=== PATIENT | female | born 1955 | race Caucasian/White ===

== ENCOUNTER 2021-02-02 14:03 | Emergency (ER) | payer OTHER ==
[~2021-02-02] VITALS: Ht 160 cm; Wt 37.6 kg
[2021-02-02 15:18] LABS: URINE BILIRUBIN NEGATIVE (Negative); URINE BLOOD NEGATIVE (Negative); URINE CLARITY CLEAR; URINE COLOR YELLOW; URINE GLUCOSE-RANDOM* NEGATIVE (Negative); URINE KETONES NEGATIVE (Negative); URINE LEUKOCYTES-REFLEX NEGATIVE (Negative); URINE NITRITE-REFLEX NEGATIVE (Negative); URINE PROTEIN (DIPSTICK) NEGATIVE (Negative); URINE SPECIFIC GRAVITY <= 1.005 (1.005-1.035); URINE UROBILINOGEN 0.2 E.U./dl (0.2-1.0)
[2021-02-02 15:49] LABS: ALBUMIN 3.5 g/dL (3.4-5.0); ANION GAP 13 mmol/L (7-16); BUN 9 mg/dL (7-18); CALCIUM 9.2 mg/dL (8.5-10.1); CHLORIDE 96 mmol/L (98-107); CO2 29 mmol/L (21-32); CREATININE 0.6 mg/dL (0.6-1.0); DIRECT BILIRUBIN < 0.1 mg/dL (<0.1-0.2); GLUCOSE 105 mg/dL (74-106); LIPASE 90 U/L (73-393); SGOT 19 U/L (15-37); SGPT 16 U/L (30-65); SODIUM 138 mmol/L (136-145); TOTAL BILIRUBIN 0.3 mg/dL (0.2-1.0); TOTAL PROTEIN 7.6 g/dL (6.4-8.2)
[2021-02-02 15:51] LABS: POTASSIUM 2.6 mmol/L (3.5-5.1)
[2021-02-02 16:15] LABS: HEMOGLOBIN 11.6 gm/dL (12.0-15.0); MCH 25.9 pg (26.0-34.0); MCHC 33.1 g/dL (28.0-37.0); MCV 78.4 fL (80.0-100.0); PLATELET COUNT 412 thou/uL (150-400); RBC 4.47 mil/uL (4.20-5.00); RDW 20.3 % (10.5-14.5); WBC 6.6 thou/uL (4.0-11.0)
[2021-02-02 17:06] LABS: ABSOLUTE NEUTROPHILS 4.9 thou/uL (1.4-8.2); ANISOCYTOSIS 2+; HYPOCHROMASIA 1+; MICROCYTES 1+
[2021-02-02 17:58] VITALS: BP 192/102
== END 2021-02-02 17:58 | disposition left against medical advice (07) ==
LOC: ER 14:03
PROVIDERS: Nurse Practitioner
DX: R22.2 Localized swelling, mass and lump, trunk (principal); M06.9 Rheumatoid arthritis, unspecified

== ENCOUNTER 2021-02-13 10:21 | Inpatient (IN) | payer OTHER ==
[~2021-02-13] VITALS: Ht 160 cm; Wt 39.0 kg
[2021-02-13 10:35] VITALS: BP 106/59
--- NOTE | 2021-02-13 11:45 | NUR ---
PT STATES SHE HAD CHEST DISCOMFORT WITH INSPIRATION LAST NIGHT THAT HAS SINCE RESOLVED. PT STATES ONCOLOGIST SENT HER TO ED FOR W/U. PT STATES CHEST DISCOMFORT IS NOT NEW AND IT IS D/T MASS ON RIGHT BREAST. PT HAS A VERY LARGE MASS WITH NECROTIC ULCER, FOUL ODOR NOTED, NO DRAINAGE NOTED AT THIS TIME. PT SISTER AT BEDSIDE STATING THEY WERE SUPPOSED TO BE GETTING INTO WOUND CARE CLINIC TODAY. PT IS ALERT AND ORIENTED X4, AMBULATORY WITH STEADY GAIT, GARCIA, PT SKIN PWD, VSS ON RA, CALL LIGHT ENCOURAGED TO USE
[2021-02-13 12:04] LABS: ABSOLUTE NEUTROPHILS 3.9 thou/uL (1.4-8.2); BASOPHILS 0.8 % (0.0-2.0); EOSINOPHILS 0.1 % (0.0-3.0); HEMATOCRIT 31.7 % (37.0-47.0); HEMOGLOBIN 10.4 gm/dL (12.0-15.0); LYMPHOCYTES 27.7 % (24.0-44.0); MCHC 32.8 g/dL (28.0-37.0); MCV 79.4 fL (80.0-100.0); MONOCYTES 5.4 % (1.0-8.0); PLATELET COUNT 350 thou/uL (150-400); RDW 20.3 % (10.5-14.5); WBC 5.9 thou/uL (4.0-11.0)
[2021-02-13 12:06] LABS: ANION GAP 15 mmol/L (7-16); BUN 18 mg/dL (7-18); CALCIUM 7.6 mg/dL (8.5-10.1); CHLORIDE 102 mmol/L (98-107); CO2 21 mmol/L (21-32); CREATININE 0.8 mg/dL (0.6-1.0); GLUCOSE 111 mg/dL (74-106); POTASSIUM 4.2 mmol/L (3.5-5.1); SODIUM 138 mmol/L (136-145)
[2021-02-13 12:16] LABS: ALBUMIN 3.1 g/dL (3.4-5.0); SGOT 40 U/L (15-37); SGPT 21 U/L (14-59); TOTAL BILIRUBIN 0.3 mg/dL (0.2-1.0); TOTAL PROTEIN 7.2 g/dL (6.4-8.2); TROPONIN-I <0.06 ng/mL (<0.06)
--- NOTE | 2021-02-13 12:21 | EKG ---
[address] [address] ELECTROCARDIOGRAM REPORT Name: MALIKA SAMSON Room #: REG [facility]#: [id number] Admission: 02/13/21 Attend Phys: Discharge: Date of : 53 Report #: [id number] [facility] ED Test Date: 2021-02-13 Test Time: 10:39:05 Pat Name: MALIKA SAMSON Department: Room: Gender: F Human Resources Team Member: ASHLEY : 1955 Requested By: Khanh Bowling Order Number: [id number] MD: Alex Hazel Measurements Intervals [place] Rate: 98 P: 79 DC: 123 QRS: 64 QRSD: 84 T: 41 QT: 345 QTc: 441 Interpretive Statements Sinus rhythm No previous ECG available for comparison Electronically Signed On 02-13-2021 12:21:18 CDT by Alex Hazel [email or web address] <ELECTRONICALLY SIGNED> By: Alex Hazel MD, [facility] 02/13/21 1221 1039 1039 Alex Hazel MD, FACC /EPI
[2021-02-13 13:15] LABS: ANISOCYTOSIS 1+; PLATELET ESTIMATE NORMAL; POLYCHROMASIA 1+
--- NOTE | 2021-02-13 13:33 | NUR ---
HOSPITALIST AT BEDSIDE WITH PT AT THIS TIME
--- NOTE | 2021-02-13 13:57 | NUR ---
PT AMBULATED TO RESTROOM, GAIT STEADY IN NATURE
[2021-02-13 14:09] VITALS: BP 110/67
--- NOTE | 2021-02-13 14:12 | NUR ---
HANDOFF TOOL SENT AT THIS TIME
--- NOTE | 2021-02-13 14:28 | NUR ---
REPORT GIVEN VADIM QUINONES AT THIS TIME. DENIES FURTHER QUESTIONS. PT STABLE AND READY FOR TRANSFER TO FLOOR
[2021-02-13 15:00] VITALS: BP 121/69
[2021-02-13 16:00] VITALS: BP 110/67
[2021-02-13 16:24] LABS: FOLIC ACID 31.5 ng/mL (8.6-58.9)
--- NOTE | 2021-02-13 16:50 | NUR ---
Patient arrived to unit at approx 1530. Patient transferred to bed with stand by assist & tolerated well. Patient oriented to room & given admission packet. Patient has a wound secondary to cancer. Zahra Herzog and Topher consulted. Pictures taken and posted on chart. Patient is sr/st on Telemetry. Patient denies pain but did voice having pain last night. Care plan activated, IVF infusing on L FA w no issues. Patient stated she is wanting to leave, Ирина at bedside and aware. Endorsed to charge nurse.
[2021-02-13 20:54] VITALS: BP 109/63
--- NOTE | 2021-02-14 05:17 | NUR ---
PATIENT AOX1 CONFUSED AND FORGETFUL. PATIENT WAS EASY TO REDIRECT AT TIMES. TREATMENT DONE ON RIGHT BREAST, MAXIMUM DRAINAGE NOTED AND S/S OF INFECTION. PATIENT WAS GETTING AGITATED AND WANTED TO LEAVE AT AROUND 0000. PATIENT REMOVE IV AND TELE BOX AND WANTED TO LEAVE. AT AROUND 0100 PATIENT WAS FULLY DRESSED ON STREET CLOTHS. AND TRYING TO LEAVE, WHEN THIS NURSE TRIED TO GET THE PATIENT BACK I THE ROOM.PATIENT STARTED KICKING AND YELLING. SECURITY CALLED AND ORDER OF HALDOL GIVEN. PATIENT REFUSED TO GET IN THE ROOM AND HAVE THE IM, CALLED BEVEL POLISHER AGAIN FOR A HOLD ORDER TO GIVE IM INJECTION. LEFT SECURITY WITH PATIENT TO GET THE ORDER. SECURITY ESCORTED PATIENT TO THE ER WHILE THIS NURSE WAS GETTING AN ORDER TO PHYSICALLY HOLD THE PATIENT TO GIVE IM HALDOL. SECURITY DID NOT LET THIS NURSE OR ANYONE IN THE UNIT KNOW THAT THEY WERE TAKING THE PATIENT OFF THE UNIT.
--- NOTE | 2021-02-15 09:45 | HC ---
[facility] [place] [address] CONSULTATION Name: MALIKA SAMSON Room #: 459-P [facility] IN M.R.#: [id number] Admission: 02/13/21 Attend Phys: Yoselin Gifford MD Discharge: 02/14/21 Date of : 53 Report #: [id number] THIS REPORT FOR: cc: Haydee Martinez Beth RNP Althoff, Jeffrey R. MD ~ DOC #: [id number] Gold Kline MD DATE OF SERVICE: 02/13/2021 CHIEF COMPLAINT: Chest wall erosion. HISTORY OF PRESENT ILLNESS: This is a 65-year-old female patient who was brought to the Emergency Department by her sisters with chest wall pain. She has is a very poor historian, but apparently developed some sort of lesion or ulceration to her chest wall about 2 years ago, but ignored it as it was not painful. It has become increasingly painful and larger and she is brought here for further evaluation and treatment. She apparently has had a CT scan, which demonstrates a likely malignant in origin with some erosion of her ribs underlying this area. She is admitted for further evaluation and care. The patient is a little bit evasive or simply it is difficult to get a solid history from her. However, this CT scan demonstrated a large heterogeneous soft tissue mass involving the entire right breast and extending across the midline and into the right breast axillary tail. The mass involves the anterior chest wall and anterior pleura and there is erosion of adjacent ribs, but there was no evidence of metastatic disease. The patient notes some pain and some odor present. PAST MEDICAL HISTORY: Positive for history of rheumatoid arthritis. SOCIAL HISTORY: Positive for current smoking. No alcohol use. FAMILY HISTORY: Noncontributory. REVIEW OF SYSTEMS: Difficult to obtain from the patient and really are all pertinent systems are contained in the history of present illness or otherwise not obtainable. PHYSICAL EXAMINATION: VITAL SIGNS: Temperature 36.1, pulse 102, respiration of 18, blood pressure 110/67. GENERAL: This is a chronically ill-appearing female patient, who appears to be in no obvious distress. HEENT: Normocephalic. Nose and throat clear. NECK: Supple. LUNGS: Clear. HEART: Regular rhythm. [facility] [address] [place] [address] CONSULTATION Name: MALIKA SAMSON Room #: 459-P [facility] IN M.R.#: [id number] Admission: 02/13/21 Attend Phys: Yoselin Gifford MD Discharge: 02/14/21 Date of : 53 Report #: [id number] ABDOMEN: Soft, nontender. MUSCULOSKELETAL: The right chest wall demonstrates necrotic ulceration involving the anterior chest wall on the right side, almost circumferential to her breast with distortion of breast tissue and induration of the breast tissue. There is some odor present. The ulceration has no granulation tissue and has a disorganized appearance. EXTREMITIES: Without clubbing or cyanosis. NEUROLOGIC: The patient is alert, does appear to be moving all 4 extremities spontaneously. LABORATORY DATA: Sodium 138, potassium 4.2, chloride 102, CO2 of 21, BUN 18, creatinine 0.8, total bilirubin 0.3, total protein is 7.2, albumin is 3.1. White blood cell count 5.9 with a hemoglobin of 10.4. CT scan findings detailed above in the history of present illness with large breast mass with erosion into the chest wall. CLINICAL IMPRESSION: 1. Right chest wall ulceration, likely due to malignant process, primarily involving the breast with extension into chest wall and pleura. 2. History of rheumatoid arthritis. RECOMMENDATIONS: At this point in time, we will recommend topical Silvadene, morphine compound with Xeroform gauze and ABD to be changed twice daily, which will help, I hope, with some of her discomfort as well as facilitate dressing changes. Clearly, this is going to require biopsy and/or surgical or oncology intervention and I believe she is to see oncology while here in the hospital. I do appreciate being asked to see her in consultation. MD MARQUIS Khoury/ARNEL <ELECTRONICALLY SIGNED> By: Gold Kline MD 02/15/21 0945 1708 [id number] Gold Kline MD /nt
== END 2021-02-14 02:00 | disposition left against medical advice (07) | DRG 389 ==
LOC: ER 10:21 → EROBS 13:47 → 4W 13:47
PROVIDERS: Emergency Medicine; Nurse Practitioner; ADMIT Hospitalist; ATTEND Hospitalist
DX: K56.600 Partial intestinal obstruction, unspecified as to cause (principal); Z68.1 Body mass index [BMI] 19.9 or less, adult; M06.9 Rheumatoid arthritis, unspecified; R22.2 Localized swelling, mass and lump, trunk; F17.210 Nicotine dependence, cigarettes, uncomplicated; R62.7 Adult failure to thrive; N63.0 Unspecified lump in unspecified breast; L98.499 Non-pressure chronic ulcer of skin of other sites with unspecified severity; Z53.29 Procedure and treatment not carried out because of patient's decision for other reasons; Z71.6 Tobacco abuse counseling
CPT/HCPCS: 10045

== ENCOUNTER 2021-02-14 04:17 | Inpatient (IN) | payer OTHER ==
[2021-02-14] VITALS (7 sets, daily range): BP systolic 92–124; BP diastolic 55–77
[~2021-02-14] VITALS: Ht 160 cm; Wt 39.0 kg
--- NOTE | 2021-02-14 06:43 | NUR ---
PATIENT ARRIVED AT AROUND 0600. PATIENT DENIED PAIN OR DISCOMFORT. FALL PRECAUTION IN PLACE. PATIENT WAS TRYING TO ELOP THIS SHIFT. PATIENT IN BED ASLEEP AT THIS TIME BREATHING REGULAR AND UNLABOURED.
--- NOTE | 2021-02-14 11:05 | NUR ---
ASSUMED PT CARE THIS AM. ADMISSION COMPLETED CHARTED. PATIENT IS A&OX1. FALL PRECAUTIONS ARE IN PLACE. NEW IV STARTED TO LEFT WRIST. PATIENT ON TELEMETRY. PATIENT IS ON ROOM AIR. FALL PRECAUTIONS IN PLACE, CALL LIGHT WITHIN REACH.
--- NOTE | 2021-02-14 14:39 | NUR ---
PT ADMITTED RELATED TO CHEST MASS AND BOWEL OBSTRUCTION. PT HAD BEEN ADMITTED YESTERDAY AND LEFT UNIT AMA AND POLICE RECOVERED HER IN THE WOOD. PT'S SISTERS WHO LIVE OUT OF STATE ARE TAKING SHIFTS BEING HERE WITH PT LUIS MANUEL NIEVES LIVES IN [place] AND SISTER THIERNO MOTT LIVES IN [place]. NEITHER ARE DPOA THERE ISN'T A DOCUMENT. CM MET WITH PT AND LUIS MANUEL AT BEDSIDE AND PT WAS ABLE TO PROVIDE SOME ASSESSMENT INFO. SHE INDICATED SHE LIVES IN A HOUSE ALONE WITH 2 STEPS TO ENTER AND NONE SHE USES INSIDE. 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 PT LISTED AT PATIENT PAY.. SISTER LUIS MANUEL HAS A DOCUMENT FROM [employer] AND THEY HAVE A PHONE APPOINTMENT ON MARCH 09 RELATED TO HER SOCIAL SECURITY. [employer] HAS ALREADY BEEN IN CONTACT WITH LUIS MANUEL TO ASSIST WITH MEDICAID AND BENEFITS. PT TO HAVE BIOPSY AND BONE SCAN TODAY. PSYC AND NEURO PSYC CONSULTED. CM FOLLOWING REGARDING DC PLANNING.
--- NOTE | 2021-02-15 04:22 | NUR ---
PATIENT AOX1 CONFUSED AND FORGOTTEN. PATIENT HAS A DRESSING ON RIGHT BREAST C/D/I, PATIENT WOUND HAS A STRONG ODOR. PATIENT AMBULATES WITH STEADY GAITS. PATIENT IS [place]. PATIENT WAS GETTING AGITATED AND ANXIOUS THIS SHIFT, PRN HALDOL GIVEN PER ORDER. FALL PRECAUTION IN PLACE. PATIENT IN BED ASLEEP AT THIS TIME BREATHING REGULAR AND UNLABOURED.
[2021-02-15 08:34] VITALS: BP 109/63
[2021-02-15 08:43] VITALS: BP 109/68
--- NOTE | 2021-02-15 12:11 | NUR ---
Received awake on bed. Due medications given as prescribed. On soft fiber restricted diet- tolerating well; no nausea, no vomiting and no abdominal pain noted. On room air. Vital signs stable. With NS at 80cc/hr, infusing well at L wrist. On telemetry; no complains and signs of chest pain, crushing sensation and heaviness. Assisted in ADLs. May be impulsive at times; falls bundle in place- pt near the nurse's station for close monitoring- elopment risk. No complains of pain made during assessment. Continent of bowel and bladder, able to go to the toilet with standby assist and gait belt.
--- NOTE | 2021-02-15 14:17 | NUR ---
PT'S OTHER SISTER THIERNO FROM [place] IS AT BEDSIDE THIS DAY. SHE IS A RETIRED NURSE. PT WAS GIVEN MEDS FOR HER BONE SCAN AND DTR LAQUITA WASN'T ABLE TO ASSESS COMPETANCY DURING THIS VISIT. HE IS TO FOLLOW UP TOMORROW TO SEE IF PT CAN/WILL ELECT A DPOA. CM FOLLOWING REGARDING DC PLANNING.
[2021-02-15 16:46] VITALS: BP 134/78
[2021-02-15 20:33] VITALS: BP 136/76
[2021-02-16 07:48] LABS: CALCIUM 8.7 mg/dL (8.5-10.1); CREATININE 0.8 mg/dL (0.6-1.0); MAGNESIUM 1.7 mg/dL (1.8-2.4)
[2021-02-16 07:53] LABS: HEMATOCRIT 27.9 % (37.0-47.0); HEMOGLOBIN 9.1 gm/dL (12.0-15.0); MCH 26.5 pg (26.0-34.0); MCHC 32.8 g/dL (28.0-37.0); MCV 80.7 fL (80.0-100.0); RBC 3.46 mil/uL (4.20-5.00); RDW 21.7 % (10.5-14.5)
[2021-02-16 08:12] VITALS: BP 167/97
--- NOTE | 2021-02-16 08:52 | HC ---
[facility] [place] [address] CONSULTATION Name: MALIKA SAMSON Room #: 462-P ADM IN M.R.#: [id number] Admission: 02/14/21 Attend Phys: Kapil Reyes MD Discharge: Date of : 53 Report #: [id number] THIS REPORT FOR: cc: Haydee Martinez Beth RNP Deutch, Neal B. PhD ~ DOC #: [id number] Spike Baumann, PhD DATE OF SERVICE: 02/15/2021 NEUROBEHAVIORAL STATUS EXAM ATTENDING PHYSICIAN: Dr. Kapil Reyes. JEWELRY REPAIRER: Spike Baumann, PhD CLINICAL PRESENTATION: The patient is a 65-year-old female initially admitted to [facility] accompanied by her sister from home with complaints of chest pain. The patient was evaluated for right chest wall ulcerated wound and received a CT scan of the head. She then left AMA. Her medical problem list included a bowel obstruction and chest mass. She was evaluated from Hematology and Oncology and her assessment was a right breast chest mass. The patient has a 2-year history of breast mass prior to this most recent assessment. A necrotic right breast mass was diagnosed with brain scan ordered. A complete description of her medical condition and history as well as medications can be found in her medical record. Neuropsychological consultation was requested to provide assistance in the assessment of cognitive and emotional status and provide recommendations regarding mental capacity. The patient reports that she was living independently in her own home prior to this most recent medical event. She states that she was independent with basic and instrumental activities of daily living. She is with no children. The patient has 3 sisters. She is a college graduate from the [employer]. 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 TECHNIQUES UTILIZED: Clinical interview, review of medical records, staff consultation and behavioral observation, mini mental status exam 2 standard version, verbal fluency assessment (letter and category and clock drawing). EXAMINATION FINDINGS: The patient was alert and cooperative with the assessment. However, she appears to lack insight into the severity of her cognitive deficits. She is likely an unreliable historian. She does not report feelings of anxiety or depression and states that sleep and appetite are [facility] [address] [place] [address] CONSULTATION Name: MALIKA SAMSON Room #: 462-P ADM IN M.R.#: [id number] Admission: 02/14/21 Attend Phys: Kapil Reyes MD Discharge: Date of : 53 Report #: [id number] within normal limits. Frustration about having been hospitalized is reported. Intermittent difficulty with memory is reported. Her performance on the MMSE 2 brief version was extremely low with a raw score of 6/16. She was 3/3 for initial registration, 2/5 for orientation to time, 1/[address], and 0/3 for immediate recall of 3 items after a brief time delay and distraction. Performance on the MMSE 2 standard version was extremely low with a raw score of 15/30. She was 1/5 for serial sevens, 2/2 for naming, 1/1 for repetition, 3/3 for auditory comprehension. She could read and follow a single command and write a sentence. The patient was unable to copy a simple geometric design. The patient was unable to complete clock drawing. She had difficulty with placing numbers within the clock as well as setting the hands at a designated time. Performance on verbal fluency assessment was extremely low. Letter fluency was a raw score of 9, T score of 19 and percentile rank of less than 1. Category fluency was a raw score of 12, T score of 19, percentile rank of less than 1. Overall, total fluency was extremely low with a raw score of 21, T score of 19 and percentile rank of less than 1. The patient is presenting with severe deficits in cognition. However, she does have intermittent periods in which she is lucid and better oriented. She is able to recognize her sisters as her primary source of support. This type of presentation suggests a severe neurocognitive disorder. Delirium may also be a part of her current presentation. The extent of the neurocognitive deficit is to be determined. DIAGNOSTIC IMPRESSION: Delirium, mixed level of activity, acute. Neurocognitive disorder extent to be determined. RECOMMENDATIONS: The patient is likely to maintain mental capacity for the selection of one of her sisters as her durable power of sports attorney. While she has intermittent periods of disorientation and confusion, her consistency in identifying her sisters as well as their availability to provide assistance in the management of medical decision making process appears satisfactory. The patient will need assistance in the management of her medical condition. She is likely to lack mental capacity in regard to medical decision making. However, as indicated, the selection of a durable power of sports attorney as restricted to her sister's appears to be appropriate. Thank you very much for allowing me to provide the consultation on this patient. [facility] [address] [place] [address] CONSULTATION Name: MALIKA SAMSON Room #: 297-P ADM IN M.R.#: [id number] Admission: 02/14/21 Attend Phys: Kapil Reyes MD Discharge: Date of : 53 Report #: [id number] Spike Baumann, PhD NBD/ALL <ELECTRONICALLY SIGNED> By: Spike Baumann, PhD 02/16/21 0852 1538 0104 Spike Baumann, PhD /nt
[2021-02-16 10:23] VITALS: BP 141/76
[2021-02-16 15:52] VITALS: BP 155/95
--- NOTE | 2021-02-16 16:06 | NUR ---
CM MET WITH PT AND HER SISTER THIERNO AT BEDSIDE THIS DAY. PT INDICATED SHE WAS AGREEABLE WITH DOING A DPOA DOCUMENT AND THAT SHE WOULD LIKE TO DESIGNATE HER SISTER LUIS MANUEL. STUMPER FELLER NOTERIZED DOCUMENT CM AND SISTER THIERNO WITNESSED. DOCUMENT PLACED ON CHART. PT INIDCATED NO DEFICITS WITH MOBILITY AT THIS TIME. OT WORKING ON GROOMING TASKS. PT WITH NO INSURANCE AT THIS MOMENT. PT HAD BEEN AT HOME WITH LIMITED SUPPORT OF HER OUT OF TOWN SISTERS [employer]. CM FOLLOWING REGARDING DC PLANNING. PT HAD BIOPSY THIS DAY AND IS GETTING WC AND ABX.
[2021-02-16 20:00] VITALS: BP 141/83
--- NOTE | 2021-02-16 20:00 | NUR ---
PT IS A&0*4, FORGETFULL AND IMPULSSIVE. STABLE IN VS AND ROOM AIR. PT WORKED WITH PT AND OT, AND AMBULANCE WITH FAMILY ON HALLWAY IN THE UNIT WITHIN OT APPROVED. PT'S RROM KEPT OPEN FOR SECURITY CONCERNS DURING THE WHOLE SHIFT. RIGHT BREAST UNDER DRESSING CHANGED AND CULTURED IN THE AFTERNOON AROUND 17:00. PAIN MEDICATION GIVEN AFTER DRESSING CHANGED. HAS BEEN APPLIED THREE TIMES LOTION ON PATIENT'S BACK AND BILATERAL LEGS FOR COMFORT. PT HAS BEEN WALKED FROM BED TO CHAIR AND BATHROOM SAFELY WITH FAMILY OR STAFF MONITOR AND ASSISTANCE. BED ALARM AND CHAIR ALARM APPLIED DUE TO UNSTABLE GAIT. IV ABX HAS BEEN GIVEN PER ORDERS. GIVE REPORT TO INSURANCE ACCOUNT REPRESENTATIVE NURSE LINCOLN FOR KEEP MONITOR PATIENT'S STAFETY, WOUND AND VS.
--- NOTE | 2021-02-17 06:23 | NUR ---
Pt. up several times during the night to use the bathroom. She ambulates with standby assistance. She does c/o pain to the right breast, but refused po tylenol when offered. Dressing done to right breast as ordered. Bed alarm is on.
[2021-02-17 07:36] VITALS: BP 146/83
--- NOTE | 2021-02-17 08:35 | HC ---
[facility] [place] [address] CONSULTATION Name: MALIKA SAMSON Room #: 462-P ADM IN M.R.#: [id number] Admission: 02/14/21 Attend Phys: Kapil Reyes MD Discharge: Date of : 53 Report #: [id number] THIS REPORT FOR: cc: Haydee Martinez Beth RNP Kerstein, Andrew H. DO ~ DOC #: [id number] BECKI Grover DO DATE OF SERVICE: 02/16/2021 INPATIENT PSYCHIATRIC CONSULTATION DATE OF CONSULTATION: 02/16/2021 PRIMARY ATTENDING: Kapil Reyes MD. DB2 DEVELOPER: Dr. Turner. CONSULTING PSYCHIATRIST: Becki Grover DO REASON FOR CONSULTATION: Capacity and ability to establish execute a healthcare durable power of trademark attorney, ability to make higher level of medical decisions and also the question of psychotropic medication intervention. Additionally, the patient was admitted for a right fungating mass from her breast and right chest wall. SOURCES OF INFORMATION: Interview with the patient, collateral from her sister, Daisy, who was present, discussion with Dr. Reyes. HISTORY OF PRESENT ILLNESS: This is a 65-year-old female, single, who was admitted on 02/14/2021. The patient has had actually ER visit before that where she was sent home and apparently did not follow up, from available sources, she has had a long period of ignorance denial of her mass issue on her right breast and chest. I had attempted to see the patient yesterday and she was heavily sedated from lorazepam. Today, she was alert, ambulating and cheerful. We administered the [facility] Mental Status examination, the patient scored a 17/30. Deficits were noted. She was 0/3 for working memory questions with spending 100 dollars and a tricycle, 13/15 on animal naming in 1 minute 13 recall, much to my surprise, she was actually able to recall up to four digits backwards. She was only 2/4 on clock drawing. She was able to identify figures and only got 3/4 questions right on the cued memory. 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 Other notable information from the last few days is as follows and looks like Dr. Baumann saw her as well and diagnosed her with a delirium, mixed level of activity and looks like he give the same conclusion that she could appoint a DPOA, but not make higher level medical decisions. [address] [address] CONSULTATION Name: MALIKA SAMSON Room #: 462-P ADM IN M.R.#: [id number] Admission: 02/14/21 Attend Phys: Kapil Reyes MD Discharge: Date of : 53 Report #: [id number] In any event, other information from the chart. ALLERGIES: No known allergies. Looks like her first admission was on 02/13/2021. Also, history of rheumatoid arthritis. She is a current smoker. No recreational drug use or alcohol use to unspecified degree. REVIEW OF SYSTEMS: Deferred for this eval as focusing on the capacity issue. PHYSICAL EXAMINATION: VITAL SIGNS: Temperature 36.4, pulse 86, respirations 16, BP 155/95, O2 sat 99%. MUSCULOSKELETAL: Normal gait and station. MENTAL STATUS EXAMINATION: This is a well-developed, ill-appearing female, appearing stated age. Attention intact. Concentration limited as witnessed by errors on clock drawing. Speech normal in rate, volume and tone thought process linear and goal directed. Thought content, relative poverty of thought. With respect to her mood, she was euthymic, congruent. lebelle indifference given the seriousness of her general medical issues. Denied SI, HI, or auditory, visual, or tactile hallucinations. Insight limited. Judgment impaired. Fund of knowledge, no greater than average. FORMULATION: A 65-year-old female admitted for evaluation of a fungating right breast and chest wall mass. DIAGNOSES: Unspecified psychosis/ delirium, largely resolved major neurocognitive disorder, suspected given longstanding self-neglect and SLUMS result RECOMMENDATIONS AND FINDINGS: On the question of ability to appoint a healthcare DPOA, I agree with my colleague, Dr. Baumann that she does have the ability to do this. I relayed this in a timely fashion to Dr. Reyes and advised him to summon the public policy analyst today. On the question of making high level decisions such as surgery, cancer treatment, etc., I do not think the patient with cognitive deficits as these would be able to manage the information in appropriate way. In my opinion, the patient should not be allowed to leave the hospital against medical advice given her degree of cognitive impairment, it would be advisable for her to be placed in a nursing facility. I do not know the prognosis in terms of the cancer treatment, given the uncertainty of replacement and compliance issues and that she was not overtly psychotic today and had more subtle signs of psychosis, I do not think it is worth introducing [facility] [address] [place] [address] CONSULTATION Name: MALIKA SAMSON Room #: 462-P ADM IN M.R.#: [id number] Admission: 02/14/21 Attend Phys: Kapil Reyes MD Discharge: Date of : 53 Report #: [id number] an antipsychotic at this time. Also medications reviewed at this time anastrozole 1 mg oral daily, metronidazole 500 mg p.o. b.i.d. She is on Zosyn 3.375 grams q. 8 hours IV piggyback, vancomycin 750 mg q. 12 hours IV piggyback, famotidine, Lovenox, morphine p.r.n., haloperidol 1 mg q. 6 p.r.n. At this point, Psychiatry will sign off. Please call or page of further assistance needed. Time spent on this case is about 40 minutes. DO PADMINI Hernandez/ISRA/BRODERICK <ELECTRONICALLY SIGNED> By: Becki Grover DO 02/17/21 0835 1734 0020 Becki Grover DO /nt
--- NOTE | 2021-02-17 12:07 | PATH ---
[facility] [place] [address] PATHOLOGY RPT PROCEDURE Name: MALIKA SAMSON Room #: 462-P ADM IN M.R.#: [id number] Admission: 02/14/21 Date of : 53 Discharge: Report #: [id number] Path Case #: [id number] [facility] Accession Number: [id number] . 01 Material submitted: . breast - BREAST BIOPSY. Modifiers: right . 01 Clinical history: . BREAST BIOPSY . 02 Diagnosis: Breast, needle core biopsy: - No definite breast parenchyma identified. - Specimen comprised of fibrosis along with myxoid stroma. - No malignant epithelial cells present, see comment. 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 02 Comment: A properly controlled AE1/AE3 immunohistochemical stain is performed and shows no occult malignant epithelial cells within the biopsy tissue. . Findings are communicated to Dr. Herzog at approximately 3:45 p.m. on 02/15/2021. . (IUV:chain forming machine operator; 02/15/2021) . 02 Electronically signed: . Deepthi Leon MD, Pathologist NPI- [id number] . 01 Gross description: . Received in formalin labeled "Malika Samson and right breast". Received are 2 white-yellow fibroadipose breast cores ranging from 1.2-1.6 cm in length and 0.1-0.2 cm in diameter. The specimen is entirely submitted in cassette A1. The specimen was collected 02/18/2021. The time collected and placed in the form is not specified on the requisition or container. The specimen will be removed from formalin 02/18/2021 at 2340 hours. The specimen will be in formalin more than 6 hours and less than 72 hours.(BLJ; 02/14/2021) [facility] 02/14/2021 1802 Local . 02 Pathologist provided ICD-10: N60.31 . 02 CPT . [id number], [id number] [place] [address] PATHOLOGY RPT PROCEDURE Name: MALIKA SAMSON Room #: 462-P ADM IN M.R.#: [id number] Admission: 02/14/21 Date of : 53 Discharge: Report #: [id number] Path Case #: [id number] Specimen Comment: A courtesy copy of this report has been sent to [phone] Specimen Comment: [id number] Specimen Comment: Report sent to / DR ORO Specimen Comment: A duplicate report has been generated due to demographic updates. Performed at: [address], [place] [id number] MD Evgeny Mcmahan MD Phone: [phone] Performed at: [address] [id number] MD Deepthi Leon MD Phone: [phone]
--- NOTE | 2021-02-17 15:25 | NUR ---
ASSUMED PT CARE THIS AM. PT A&OX3, ABLE TO MAKE NEEDS KNOWN. PATIENT TOLERATED MEDS WELL THIS AM. IV PATENT, FLUIDS INFUSING. PATIENT STANDBY ASSIST TO BATHROOM, REMAINS CONTINENT. RASH NOTED ON PATIENTS BACK, FAMILY NOTED THAT THIS RASH HAS BEEN ON PATIENT PRIOR TO ADMISSION. PATIENT REPORTS NO PAIN. PATIENT REMAINS ON TELE. PATIENT ON ROOM AIR. FALL PRECAUTIONS ARE IN PLACE, CALL LIGHT WITHIN REACH. WOUND CARE COMPLETED TO RIGHT BREAST AND BILATERAL LOWER EXTREMETIES. PATIENT TOLERATED WELL.
--- NOTE | 2021-02-17 15:54 | NUR ---
SW reviewed chart and spoke with nursing and attending physician. Pt is on IV abx. Awaiting biopsy results at this time. No weekend discharge planned. SW discussed case with [facility] liaison, who states they may be able to provide moriah RN visits if needed for wound care. [facility] is following to assist as needed with discharge planning.
[2021-02-17 16:20] VITALS: BP 146/87
[2021-02-17 19:51] VITALS: BP 159/98
--- NOTE | 2021-02-18 04:20 | NUR ---
erasto aox2/3 makes needs known. patient right breast dressing is c/d/i. fall precaution in place. patient in bed asleep at this time breathing regular and unlaboured.
[2021-02-18 04:57] LABS: ABSOLUTE NEUTROPHILS 2.1 thou/uL (1.4-8.2); EOSINOPHILS 0.5 % (0.0-3.0); HEMATOCRIT 30.8 % (37.0-47.0); HEMOGLOBIN 9.8 gm/dL (12.0-15.0); LYMPHOCYTES 35.4 % (24.0-44.0); MCH 25.8 pg (26.0-34.0); MCHC 31.7 g/dL (28.0-37.0); MCV 81.4 fL (80.0-100.0); MONOCYTES 8.9 % (1.0-8.0); PLATELET COUNT 301 thou/uL (150-400); POLYS 54.2 % (36.0-66.0); RBC 3.78 mil/uL (4.20-5.00); RDW 21.4 % (10.5-14.5); WBC 3.9 thou/uL (4.0-11.0)
[2021-02-18 05:33] LABS: ALBUMIN 2.8 g/dL (3.4-5.0); CALCIUM 8.9 mg/dL (8.5-10.1); CREATININE 0.7 mg/dL (0.6-1.0); PHOSPHORUS 3.4 mg/dL (2.5-4.9); POTASSIUM 4.6 mmol/L (3.5-5.1); TOTAL BILIRUBIN 0.3 mg/dL (0.2-1.0); TOTAL PROTEIN 7.1 g/dL (6.4-8.2)
[2021-02-18 07:47] VITALS: BP 143/89
[2021-02-18 16:15] VITALS: BP 154/92
--- NOTE | 2021-02-18 18:30 | NUR ---
PT ASSESSED AT START OF SHIFT. PT CALM AND PLEASANT ENTIRE SHIFT. ORIENTED WELL. PT VISITED MOST OF DAY W/ HER SISTER WHO FLEW IN FROM [facility]. ATE AND DRANK WELL. AMBULATED THE HALLS W/ JURY CONSULTANT W/ STANDBY ONLY.
[2021-02-18 20:00] VITALS: BP 135/82
--- NOTE | 2021-02-19 03:19 | NUR ---
ASSESSMENT DOCUMENTED.PT BEEN RESTING IN NO ACUTE DISTRESS.VSS.AFEBRILE.SR ON MONITOR.ON RA W/O RESP DISTRESS.SBA W/ TOILETING.REMAINS ON INTRAVENOUS ANTIBIOTICS THERAPY,TOLERATING.RIGHT BREAST DRESSING COMPLETED AND INTACT,PT TOLERATED TX.DENIES PAIN OR ANY CONCERNS AT THIS TIME.POC IS TO CONTINUE W/CURRENT TX WHILE WAITING FOR BIOPSY RESULTS.
[2021-02-19 05:00] VITALS: BP 144/84
[2021-02-19 08:00] VITALS: BP 148/102
[2021-02-19 12:30] LABS: ABSOLUTE NEUTROPHILS 3.3 thou/uL (1.4-8.2); BASOPHILS 1.3 % (0.0-2.0); EOSINOPHILS 0.2 % (0.0-3.0); HEMATOCRIT 28.8 % (37.0-47.0); HEMOGLOBIN 9.5 gm/dL (12.0-15.0); LYMPHOCYTES 18.7 % (24.0-44.0); MCH 26.8 pg (26.0-34.0); MCHC 33.1 g/dL (28.0-37.0); MONOCYTES 8.4 % (1.0-8.0); PLATELET COUNT 289 thou/uL (150-400); POLYS 71.4 % (36.0-66.0); RBC 3.55 mil/uL (4.20-5.00); WBC 4.6 thou/uL (4.0-11.0)
--- NOTE | 2021-02-19 15:37 | NUR ---
PATIENT WAS A&O*4 THIS MORNING AND WAS RUSHED TO GET DRESSED. PATIENT IS CONFUSED AND FORGETFULL. PT THOUGHT SHE WAS GOING TO BE DISCHARGE TODAY. TALKED TO THE DR. BAILON AND NOTICED PT'S CONCERNS. HAD CONVERSATION WITH PT'S SISTER AND CHANGED TO "NO CODE" FROM "FULL CODE". PT IS REORITENTED AND A&O*4 LATER AFTER SISTER'S CAME TO VISIT. DRESS CHANGED PER ORDER AND PAIN MEDICINE PROVIDED AFTER. IV ROTATED DUE TO PATIENT REQUEST TO RIGHT FOR ARM. KEEP SUPERVISE AND STANDBY PATIENT WHEN SHE AMBULATE TO THE RESTROOM IN PATIENT'S ROOM. WILL KEEP MONITOR PATIENT'S SAFETY, VS AND DRESSING STATUS UNTIL SHIFT CHANGE.
[2021-02-19 16:51] VITALS: BP 146/80
[2021-02-19 19:28] VITALS: BP 149/73
--- NOTE | 2021-02-20 05:13 | NUR ---
Pt. rested quietly at intervals during the night when checked on during the night. She offers no c/o pain. Pt. c/o being hungry and box lunch given. Treatment done to right breast as ordered. Bed alarm is on. Cooperative with cares.
[2021-02-20 07:33] VITALS: BP 145/72
--- NOTE | 2021-02-20 08:00 | HC ---
[facility] [place] [address] [address] [place] [address] CONSULTATION Name: MALIKA SAMSON Room #: 462-P ADM IN M.R.#: [id number] Admission: 02/14/21 Attend Phys: Kapil Reyes MD Discharge: Date of : 53 Report #: [id number] THIS REPORT FOR: cc: Haydee Martinez Beth RNP Althoff, Jeffrey R. MD ~ DOC #: [id number] Gold Kline MD DATE OF SERVICE: 02/15/2021 CHIEF COMPLAINT: Ulceration to the right chest wall. HISTORY OF PRESENT ILLNESS: This is a 65-year-old female patient who I just saw here in the hospital several days ago. She subsequently left against medical advice, was found apparently roaming in the [place] and is return here, she is accompanied by a sister. She is a very poor historian, but developed some sort of a lesion or ulceration to her chest wall 2 years ago, but ignored it as it was not painful. It became increasingly painful and larger and she was brought here by family members. She has had a CAT scan, which demonstrates a likely malignant tumor involving the breast and chest wall with erosion into her ribs and underlying area and into the pleura. She is readmitted for evaluation and treatment. She is a bit confused. She is about to go for a bone scan. PAST MEDICAL HISTORY: Positive for history of rheumatoid arthritis. SOCIAL HISTORY: Positive for current smoking and alcohol use. FAMILY HISTORY: Noncontributory. REVIEW OF SYSTEMS: Again, difficult to obtain and all pertinent systems are noted in the history of present illness are otherwise unobtainable. PHYSICAL EXAMINATION: VITAL SIGNS: At this time include temperature 36.6, pulse 81, respirations 18, blood pressure ____. GENERAL: This is a somewhat chronically ill-appearing female patient who appears to be in minimal distress. HEENT: Head, normocephalic. NECK: Supple. LUNGS: Diminished. HEART: Regular rhythm. CHEST WALL: Demonstrates significant ulceration involving the right breast and almost circumferential areas around the breast with foul smelling yellow-brown necrotic tissue. ABDOMEN: Soft and nontender. NEUROLOGIC: The patient is alert. Her level of orientation is difficult to [facility] [address] [place] [address] CONSULTATION Name: MALIKA SAMSON Room #: 462-P ADM IN M.R.#: [id number] Admission: 02/14/21 Attend Phys: Kapil Reyes MD Discharge: Date of : 53 Report #: [id number] assess and is not entirely clear that she is tracking with the conversation. LABORATORY DATA: White blood cell count 5.9, hemoglobin 10.4 from the other day. No other additional studies have been obtained since her last visit here in the hospital. Albumin was 3.1. CLINICAL IMPRESSION: 1. Right chest wall ulceration likely due to malignant process, primarily involving the breast with extension into the chest wall and pleura. 2. History of rheumatoid arthritis. RECOMMENDATIONS: At this point in time, we will recommend topical crushed Flagyl to help control odor covered with Xeroform and then quarter Dakin's b.i.d. She will need surgical and she will eventually need Surgical consultation as well as Oncology evaluation to better understand the extent of this likely malignant process. I appreciate being asked to see her in consultation. Gold Kline MD JRA/JONATHAN <ELECTRONICALLY SIGNED> By: Gold Kline MD 02/20/21 0800 1702 0121 Glod Kline MD /nt
--- NOTE | 2021-02-20 11:07 | PATH ---
[facility] [address] [place] [address] PATHOLOGY RPT PROCEDURE Name: SANDRA SAMSON Room #: 462-P ADM IN M.R.#: [id number] Admission: 02/14/21 Date of : 53 Discharge: Report #: [id number] Path Case #: [id number] LCA Accession Number: [id number] . 01 Material submitted: . chest - RIGHT CHEST AXILLARY TAIL LYMPH NODE. Modifiers: right . 02 Diagnosis: Lymph node, right chest/axillary tail lymph node, needle core biopsy: - POSITIVE FOR MALIGNANCY; METASTATIC CARCINOMA POORLY DIFFERENTIATED ADENOCARCINOMA PRESENT WITH FOCAL SIGNET-RING CELL FEATURES, SEE COMMENT. (IUV:pit; 02/17/2021) QTP 02/20/2021 0948 Local . 02 Comment: Examination shows a poorly differentiated non-small cell carcinoma with focal subtle gland formation. Intraluminal mucin is identified. A properly controlled AE1/AE3 immunohistochemical stain is performed and it shows strong membranous reactivity present within the tumor. Focal lymph node tissue is identified towards the periphery compatible with sampling of a lymph node effaced by malignancy. Findings are compatible with the history of breast primary gathered through the EMR. . ER, [place] and HER-2/perry are ordered on block A1 and the results of this will be reported in an addendum to follow. . Dr. July Montgomery has seen a corporate representative focus and concurs with me. Findings of this case are communicated to Dr. Conner Ramirez at approximately 11:45 am on 02/17/2021. (IUV:pit; 02/17/2021) . 02 Electronically signed: . Deepthi Leon MD, Pathologist NPI- [id number] . 01 Gross description: . Received in formalin labeled "Sandra Samson and right chest/axillary tail". Received are white-yellow fibroadipose breast tissue cores ranging from 1.1 and 1.4 cm in length and 0.1 cm in diameter. The specimen is submitted entirely in cassette A1. The specimen was collected 02/16/2021 at 1005 hrs. The time in formalin is not specified on the container or requisition. The specimen will be removed from formalin 02/16/2021 and 2340 hours. The specimen will be in formalin more than 6 hours and less than 72 hours.(BLJ; 02/16/2021) [facility] 02/17/2021 1403 Local . 02 Pathologist provided ICD-10: [address] [address] PATHOLOGY RPT PROCEDURE Name: SANDRA SAMSON Room #: 462-P ADM IN M.R.#: [id number] Admission: 02/14/21 Date of : 53 Discharge: Report #: [id number] Path Case #: [id number] C77.3 . 02 [facility] . [id number], [id number] Specimen Comment: A courtesy copy of this report has been sent to [phone] Specimen Comment: Report sent to Performed at: [address], [place] [id number] MD Evgeny Mcmahan MD Phone: [phone] Performed at: [address] [id number] MD Deepthi Leon MD Phone: [phone]
--- NOTE | 2021-02-20 15:45 | NUR ---
HOSPITALIST INDICATED THAT PT WOULD BE MEDICALLY STABLE TO DC SOON TOMORROW. CM CALLED PT'S SISTER DON ISSA AND INDICATED THE ABOVE. CM INDICATED THAT CARE TEAM STATED THAT PT WILL LIKELY SWITCH TO ORAL ABX UPON DC. SISTER INDICATED THAT SHE IS NEEDING TWICE DAILY WC AND STILL WAITING ON BIOPSY RESULTS. CM INDICATED THAT [facility] MAY BE ABLE TO PROVIDE SOME [facility] VISITS FOR WC UPON DC BUT THAT WITH NO ACTIVE MEDICIAD OR INSURANCE OPTIONS FOR SUPPORTS UPON DC AT THIS TIME ARE LIMITED. LUIS MANUEL ASKED THAT CM MET WITH PT'S SISTER THIERNO AT BEDSIDE. CM MET WITH THIERNO AND PT AND THEY INDICATED THE ABOVE. CM INDICATED THAT PT DOESN'T HAVE ANY PHYSICAL DEFICITS AND THAT SHE WOULD LIKELY ONLY NEED ST AND WC. CM PROVIDED SMF LIST AND INDICATED THAT THEY CAN LOOK FOR [place] MEDICIAD FACILITIES THAT CM CAN REACH OUT TO TO SEE IF THEY WOULD TAKE PT MEDICAID PENDING. LUIS MANUEL HAD BEEN CONTACTED BY ISABELA BRIDGES WITH [place] [employer] WHO WAS SUPPOSED TO BE EXPIDITING HER MEDICIAD APPLICATION. CM TO CALL HER. CM FOLLOWING REGARDING DC PLANNING.
[2021-02-20 15:47] VITALS: BP 137/69
[2021-02-20 21:07] VITALS: BP 139/69
--- NOTE | 2021-02-21 04:42 | NUR ---
PATIENT AOX3 CONFUSED AND FORGETFUL.DRESSING DONE ON RIGHT CHEST, NO DRAINAGE, NO ODOR. PATIENT AMBULATES IN THE BATHROOM WITH STEADY GAITS. PATIENT INCONTIENT THIS SHIFT.PATIENT IN BED ASLEEP AT THIS TIME BREATHING REGULAR AND UNLABOURED.
[2021-02-21 05:45] LABS: HEMATOCRIT 31.5 % (37.0-47.0); MCH 25.7 pg (26.0-34.0); MCHC 31.6 g/dL (28.0-37.0); MCV 81.5 fL (80.0-100.0); PLATELET COUNT 307 thou/uL (150-400); RBC 3.87 mil/uL (4.20-5.00); RDW 24.1 % (10.5-14.5); WBC 3.2 thou/uL (4.0-11.0)
[2021-02-21 06:05] LABS: ALBUMIN 2.7 g/dL (3.4-5.0); CALCIUM 8.6 mg/dL (8.5-10.1); CREATININE 0.6 mg/dL (0.6-1.0); PHOSPHORUS 3.6 mg/dL (2.5-4.9); POTASSIUM 4.4 mmol/L (3.5-5.1); TOTAL BILIRUBIN 0.2 mg/dL (0.2-1.0); TOTAL PROTEIN 7.3 g/dL (6.4-8.2)
[2021-02-21 06:27] LABS: ABSOLUTE NEUTROPHILS 1.6 thou/uL (1.4-8.2)
[2021-02-21 06:28] LABS: ANISOCYTOSIS 3+; PLATELET ESTIMATE NORMAL; POIKILOCYTOSIS 2+
[2021-02-21 07:52] VITALS: BP 138/77
--- NOTE | 2021-02-21 11:12 | NUR ---
ASSUMED CARE OF PT AT 0700 THIS MORNING. PT HAS WOUND ON RIGHT SIDE OF CHEST ENCOMPASSING THE BREAST. WOUND IS COVERED WITH ABD PAD AND TAPE CHANGED THIS MORNING. PT IS A/OX4, SKIN INTACT WITH NO TENTING EXCLUDING RIGHT CHEST. LUNGS ARE CLEAR IN UPPER FUNG WITH DIMINISHED LOWER FUGN. ASSESSMENT CHARTED AND OTHERWISE UNREMARKABLE, IV IN RIGHT FA WITH NS AT 80ML AND ABX. CALL LIGHT AND OTHER NEEDS ARE WITHIN REACH. PT IS SB ASST TO GO TO RESTROOM, MEDS AND OTHER TX GIVEN NEEDED AND SCHEDULED. .
--- NOTE | 2021-02-21 11:20 | NUR ---
CM FOLLOWED UP WITH PT AND SISTER SONJA AT BEDSIDE THIS DAY. THEY ASKED THAT REFERRAL BE SENT TO [facility], [facility], AND [facility]. CM FAXED REFERRALS TO ALL THREE. CM HEARD BACK FROM [place] AND THEY AREN'T ACCEPTING DO TO THEM THINKING THAT PT WOULD BE AN ELOPEMENT RISK. CM SPOKE WITH MARTINA AT [facility] AND LEFT VM WITH OSMAN AT [facility]. CM ATTEMPTING TO FIND FACILITY PLACEMENT [place] MEDICAID PENDING.
[2021-02-21 16:39] VITALS: BP 145/75
[2021-02-21 19:13] VITALS: BP 146/82
--- NOTE | 2021-02-22 05:02 | NUR ---
Pt. has been up several times during the shift. She has expressed that she wants to leave and go to her car. Or, she wants to go home. Pt. can get irritable when she is told not now. She is oriented times one. Up to the bathroom with standby assistance. Bed alarm is on.
[2021-02-22 07:53] VITALS: BP 141/82
--- NOTE | 2021-02-22 11:52 | NUR ---
ASSUMED PT CARE THIS AM. PT A&OX3, ABLE TO MAKE NEEDS KNOWN. PATIENT IV PATENT, FLUIDS INFUSING. PATIENT CAN BE IMPULSIVE, NOT CALLING WHEN NEEDED. WOUND CARE COMPLETED TO LEGS AND RIGHT BREAST, PICTURES TAKEN. PATIENT REMAINS ON ROOM AIR. PATIENT HAS BEEN CONTINENT, AMBULATING WITH ASSIST TO THE BATHROOM. PATIENT TOOK ALL MORNING MEDICATIONS WITHOUT ISSUE. PATIENT REMAINS ON TELE. FALL PRECAUTIONS ARE IN PLACE, CALL LIGHT WITHIN REACH.
--- NOTE | 2021-02-22 16:11 | NUR ---
KATHERINE SENT REFERRALS TO [facility] IN [facility], HCR JUVENAL, DEJON MANRIQUEZ. [facility] APPEARS TO BE SERIOUSLY LOOKING AT ACCEPTING PT. THEY INDICATED THEY WANT A COPY OF PT'S [place] MEDICAID APPLICATION AND THAT THEY WOULD REACH OUT TO ISABELA BRIDGES WITH APS TO GET A COPY. KATHERINE CALLED ISABELA HAWLEY TODAY TO TRY TO ASSIST WITH THIS PROCESS. CM NOTIFIED HOSPITALIST. [facility] IS ABLE TO ACCEPT PT FOR SOME [facility] VISITS FOR WC UPON DC. KATHERINE ATTEMPTED TO ASK [facility] IF THEY CAN ACCEPT PT FROM COMMUNITY BUT KATHERINE HASN'T BEEN ABLE TO SPEAK QUYNH KEY IN ADMISSIONS SINCE NOTIFYING PHYSICIAN.
[2021-02-22 16:39] VITALS: BP 141/82
[2021-02-22 16:40] VITALS: BP 141/82
[2021-02-22] MEDS ORDERED: AUGMENTIN 875-1 EACH PO (16:52)
[2021-02-22] MEDS ORDERED: VITAMIN D21250 MCG PO (16:54)
[2021-02-22] MEDS ORDERED: ARIMIDEX1 MG PO (16:55)
== END 2021-02-22 18:31 | disposition home health service (06) | DRG 579 ==
LOC: ER 04:17 → EROBS 04:44 → 4W 04:44
PROVIDERS: Internal Medicine; ADMIT Internal Medicine; ATTEND Internal Medicine
PROC: 0HBT3ZX Excision of Right Breast, Percutaneous Approach, Diagnostic (ICD-10-PCS; principal; 2021-02-14)
PROC: 07B53ZX Excision of Right Axillary Lymphatic, Percutaneous Approach, Diagnostic (ICD-10-PCS; 2021-02-16)
DX: C50.911 Malignant neoplasm of unspecified site of right female breast (principal); G92 Toxic encephalopathy; K56.600 Partial intestinal obstruction, unspecified as to cause; E44.1 Mild protein-calorie malnutrition; Z68.1 Body mass index [BMI] 19.9 or less, adult; R41.0 Disorientation, unspecified; M06.9 Rheumatoid arthritis, unspecified; L98.499 Non-pressure chronic ulcer of skin of other sites with unspecified severity; F29 Unspecified psychosis not due to a substance or known physiological condition; F01.50 Vascular dementia, unspecified severity, without behavioral disturbance, psychotic disturbance, mood disturbance, and anxiety; D50.9 Iron deficiency anemia, unspecified; F17.210 Nicotine dependence, cigarettes, uncomplicated; Z60.2 Problems related to living alone; R53.81 Other malaise; S20.111A Abrasion of breast, right breast, initial encounter; Z79.82 Long term (current) use of aspirin; Z71.41 Alcohol abuse counseling and surveillance of alcoholic; Z79.899 Other long term (current) drug therapy; Z91.19 Patient's noncompliance with other medical treatment and regimen; Z71.6 Tobacco abuse counseling; X58.XXXA Exposure to other specified factors, initial encounter; Y93.89 Activity, other specified; Y92.89 Other specified places as the place of occurrence of the external cause; Y99.8 Other external cause status; Z20.822 Contact with and (suspected) exposure to COVID-19
CPT/HCPCS: 10045